=== PATIENT | male | born 1950 | race Hispanic/Latino ===

== ENCOUNTER 2018-10-24 11:07 | Day surgery (SDC) | payer MEDICARE ==
[2018-10-24] MEDS ORDERED: LEVAQUIN 250MG/50ML 250 MG/50 ML BAG IV NR (12:00)
[2018-10-24] MEDS ORDERED: LACTATED RINGERS 1,000 ML IV SCH (12:00)
--- NOTE | 2018-10-24 12:14 | Anesthesia Consultation ---
Anesthesia Consult and Med Hx Date of service: 10/24/18 - Airway Anesthetic Teeth Evaluation: Good ROM Head & Neck: Adequate Mental/Hyoid Distance: Adequate Mallampati Class: Class I - Pulmonary Exam CTA: Yes - Cardiac Exam Cardiac Exam: RRR - Pre-Operative Health Status ASA Pre-Surgery Classification: ASA3 - Pulmonary Hx Smoking: No Hx Sleep Apnea: Yes - Endocrine Hx Non-Insulin Dependent Diabetes: Yes Hx Hypothyroidism: Yes - Hematic Hx Anemia: No - Other Systems Hx Alcohol Use: Yes (OCC WINE, BEER) Hx Cancer: No
[2018-10-24] MEDS ORDERED: DILAUDID IV PRN (12:15)
[2018-10-24] MEDS ORDERED: ZOFRAN IV PRN (12:15)
--- NOTE | 2018-10-24 12:15 | Anesthesia Day of Surgery ---
Anesthesia Day of Surgery - Day of Surgery Patient Examined: Yes Patient H&P Reviewed: Yes Patient is NPO: Yes
[2018-10-24] MEDS: VERSED IV NR ×2 (12:36→14:09)
[2018-10-24] MEDS ORDERED: SUBLIMAZE ONE (13:54)
[2018-10-24] MEDS ORDERED: DIPRIVAN 10 MG/ML IV ONE (13:55)
[2018-10-24] MEDS ORDERED: XYLOCAINE MPF 2% ONE (13:57)
[2018-10-24] MEDS ORDERED: ZOFRAN ONE (14:08)
[2018-10-24] MEDS ORDERED: DECADRON ONE (14:08)
[2018-10-24] MEDS ORDERED: WATER FOR IRRIG STERILE IR ONE (17:00)
--- NOTE | 2018-10-24 17:26 | Post Operative Note ---
Date of procedure: 10/24/18 Pre-op diagnosis: L ureteral stone Post-op diagnosis: same Findings: as above Procedure: cysto rpg left ureteroscopy laser stent Anesthesia: GETA Surgeon: DOLLY SERRANO Estimated blood loss: minimal Pathology: none Condition: stable Disposition: PACU
--- NOTE | 2018-10-24 17:27 | Discharge Summary ---
Short Stay Discharge Plan Activity: other (no straining ) Weight Bearing Status: Full Weight Bearing Diet: low fat, low cholesterol, low salt Special Instructions: other (inc fluids ) Durable Medical Equipment Needed Upon Discharge: other (stent) Follow up with: VICTORINA ALLRED JR, MD [Primary Care Provider] - 7 Days DOLLY SERRANO MD [Staff Physician] - 7 Days
[2018-10-24] MEDS ORDERED: LASIX ONE (17:31)
--- NOTE | 2018-10-24 17:47 | Operative Report ---
PREOPERATIVE DIAGNOSIS: Large left mid ureteral stone to upper ureteral stone POSTOPERATIVE DIAGNOSES: Large left mid ureteral stone to upper ureteral stone PROCEDURES: Cystoscopy, left retrograde, left ureteroscopy, laser of large left stone with double-J stent. SURGEON: Saran Bolaños MD ANESTHESIA: General. FINDINGS: This is a gentleman who is 68 with a large left mid to upper ureteral stone. All risks and complications were discussed. DESCRIPTION OF PROCEDURE: The patient was brought to lithotripsy and placed on the table. Following the induction of anesthesia, placed in lithotomy position, prepped and draped in usual sterile fashion. Cystourethroscopy was carried out, showed no bladder lesions. Retrograde showed a large obstructing stone in mid ureter. Two wires coiled in the kidney. Flexible ureteroscopy showed the stone. The stone was lasered into multiple fragments. These were too high to extract, but there were at least 7-8 fragmentations. The patient tolerated the procedure well. No significant complications. Double-J was left. No significant bleeding. Family notified. JOB# [id number] ИРИНА/SB
--- NOTE | 2018-10-24 19:05 | Post Anesthesia Evaluation ---
- Post Anesthesia Evaluation Patient Participated: Yes Airway Patent: Yes Stable Respiratory Function: Yes Nausea/Vomiting: No Temp > 96.8F: Yes Pain Manageable: Yes Adequeate Hydration: Yes Anesthesia Complications: No
[2018-10-24 19:07] VITALS: BP 135/71
--- NOTE | 2018-10-24 20:24 | Fluoroscopy Report ---
FL retrograde urography INDICATION: LT URETERAL STONE. COMPARISON: None available. FINDINGS: The left ureter was cannulated and injected. A 6 mm stone/filling defect is seen within the left mid ureter at the level of L5. There is moderate dilatation of the left proximal ureter and renal collect ing system. Next, a double-J ureteral stent was placed in expected position. Fluoroscopy time: 50 seconds. Fluoroscopic images: 5. IMPRESSION: 1. Obstructing 6 mm left mid ureteral stone at the level of L5. 2. Interval placement of double-J left ureteral stent. Signer Name: Umesh Moran MD Signed: 10/24/2018 8:19 PM Workstation Name: [id number]
== END 2018-10-24 11:08 | disposition home or self-care (01) ==
LOC: OR 11:07
PROVIDERS: ATTEND Urology
DX: N20.1 Calculus of ureter (principal); E11.9 Type 2 diabetes mellitus without complications; G43.909 Migraine, unspecified, not intractable, without status migrainosus; G47.30 Sleep apnea, unspecified; E03.9 Hypothyroidism, unspecified; Z98.890 Other specified postprocedural states; Z96.611 Presence of right artificial shoulder joint; Z72.89 Other problems related to lifestyle; Z88.0 Allergy status to penicillin; Z79.82 Long term (current) use of aspirin; Z79.899 Other long term (current) drug therapy; Z79.84 Long term (current) use of oral hypoglycemic drugs
CPT/HCPCS: 52356; 74420; 82962; A4217; C1758; C1769; C2617; J1100; J1940; J1956; J2250; J2405; J2704; J3010; J7120; Q9967